=== PATIENT | male | born 1935 | race Caucasian/White ===

== ENCOUNTER 2019-01-05 15:13 | Emergency (ER) | payer MEDICARE ==
[~2019-01-05] VITALS: Ht 177.8 cm; Wt 108.9 kg
[2019-01-05 15:13] VITALS: BP_SYST 132
[~2019-01-05 15:13] MED LIST: ALBMDI INH; ALEN70TA3 PO; ASPI-1155 PO; BECL8.7A5 INH; BUPR75TA20 PO; CHOL200075 PO; DILT240T11 PO; FURO-149 PO; GABA-531 PO; IBUP-1969 PO; LIP10 PO; LORA2TAB PO; METF-510 PO; MIRT15TA7 PO; NITSL SL; NORT10CA PO; ONDA4TAB22 PO; OXYC-133 PO; POTA10TA PO; PRO20 PO; ROPI0.5T PO; ROPI2TAB4 PO; SIMV10TA6 PO
[2019-01-05] MEDS ORDERED: NACL 0.9% 1,000 ML IV ONE (15:30)
[2019-01-05 16:37] LABS: ANION GAP 5 (5-15); CALCIUM 8.3 mg/dL (8.4-11.0); CHLORIDE 107 mmol/L (98-107); GLUCOSE 143 mg/dL (70-99); POTASSIUM 4.1 mmol/L (3.5-5.1); SODIUM SERUM 144 mmol/L (136-145); UREA NITROGEN, BLOOD 16 mg/dL (8-21)
[2019-01-05 16:42] LABS: PROTHROMBIN TIME 10.3 SECS (9.5-12.5)
[2019-01-05 16:43] LABS: ALANINE AMINOTRANSFERASE 20 U/L (12-78); ALBUMIN 3.1 g/dL (3.4-4.8); ASPARTATE AMINOTRANSFERASE 21 U/L (10-37); TOTAL BILIRUBIN 0.3 mg/dL (0.0-1.0)
[2019-01-05 17:02] LABS: HEMATOCRIT 37.9 % (36-54); HEMOGLOBIN 12.3 g/dL (14.0-18.0); MEAN CORPUSCULAR HEMOGLOBIN 30 pg (27-31); MEAN CORPUSCULAR HGB CONC 33 % (32-36); MEAN CORPUSCULAR VOLUME 92 fL (79.0-98.0); RED BLOOD CELL COUNT(AUTO) 4.15 MIL/uL (4.2-6.2); WHITE BLOOD COUNT (AUTO) 9.9 K/uL (4.8-10.8)
[2019-01-05 17:03] LABS: EOSINOPHILS # (AUTO) 0.1 K/uL (0.0-0.4); EOSINOPHILS % (AUTO) 1.1 % (0.0-4.0); LYMPHOCYTES # (AUTO) 2.1 K/uL (1.0-5.5); LYMPHOCYTES % (AUTO) 20.7 % (20.5-51.5); MONOCYTES # (AUTO) 0.7 K/uL (0.0-1.0); MONOCYTES % (AUTO) 7.5 % (1.7-9.3); NEUTROPHILS # (AUTO) 6.9 K/uL (1.8-7.7); NEUTROPHILS % (AUTO) 69.7 % (40.0-70.0); PLATELET COUNT (AUTO) 246 K/uL (130-430); RED CELL DISTRIBUTION WIDTH 15.8 % (9.0-15.0)
[2019-01-05 17:04] LABS: BASOPHILS # (AUTO) 0.1 K/uL (0.0-0.2)
[2019-01-05 20:17] VITALS: BP_SYST 110
== END 2019-01-05 20:14 | disposition short-term general hospital (02) ==
LOC: SED 15:13
DX: J90 Pleural effusion, not elsewhere classified (principal); R09.02 Hypoxemia; F43.10 Post-traumatic stress disorder, unspecified; J44.9 Chronic obstructive pulmonary disease, unspecified; K21.9 Gastro-esophageal reflux disease without esophagitis; I12.9 Hypertensive chronic kidney disease with stage 1 through stage 4 chronic kidney disease, or unspecified chronic kidney disease; E11.22 Type 2 diabetes mellitus with diabetic chronic kidney disease; N18.9 Chronic kidney disease, unspecified; E78.5 Hyperlipidemia, unspecified; Z86.2 Personal history of diseases of the blood and blood-forming organs and certain disorders involving the immune mechanism; Z85.46 Personal history of malignant neoplasm of prostate; Z86.73 Personal history of transient ischemic attack (TIA), and cerebral infarction without residual deficits; Z88.6 Allergy status to analgesic agent; Z88.2 Allergy status to sulfonamides; Z88.8 Allergy status to other drugs, medicaments and biological substances; Z79.82 Long term (current) use of aspirin; Z79.899 Other long term (current) drug therapy
CPT/HCPCS: 36415; 36600; 71045; 80053; 82803; 83605; 83880; 84484; 85025; 85379; 85610; 85730; 87040; 93005; 99285; J7030

== ENCOUNTER 2019-06-22 02:55 | Inpatient (IN) | payer MEDICARE ==
[~2019-06-22] VITALS: Ht 165.1 cm; Wt 77.1 kg
[2019-06-22] VITALS (15 sets, daily range): BP systolic 108–155
--- NOTE | 2019-06-22 03:05 | NUR ---
Patient to ER bed 02 to gown for evaluation. Side rails up. Report given to POLA Hay.
--- NOTE | 2019-06-22 03:06 | NUR ---
ER MD Grant at bedside for medical evaluation.
--- NOTE | 2019-06-22 03:07 | NUR ---
AWAKE, ALERT, BIB PARAMEDICS. PARAMEDICS STATES PT HAD BEEN PURSED LIP BREATHING ENROUTE. PT STATES THAT HE HAD BEEN HAVING SOB X2 HRS, AND IT WOKE HIM UP FROM HIS SLEEP. PT ALSO COMPLAINED OF PAIN IN LEFT SIDE FROM LEFT HIP TO LEFT FOOT.
--- NOTE | 2019-06-22 03:10 | NUR ---
RT bedside to setup Pt on BiPAP at 15/10
[2019-06-22] MEDS ORDERED: ASPIRIN 325 MG TABLET PO ONE (03:15)
[2019-06-22] MEDS ORDERED: AZITHROMYCIN 250 MG TABLET PO ONE (03:15)
[2019-06-22] MEDS ORDERED: VANCOMYCIN HCL 1,000 MG in NS 250 ML IV ONE (03:15)
[2019-06-22] MEDS ORDERED: methylPREDNISolone SOD SUCC/PF 62.5 MG/ML VIAL IVP ONE (03:15)
[2019-06-22] MEDS ORDERED: IPRATROPIUM/ALBUTEROL SULFATE 3 ML AMPUL.NEB (DUONEB) INH ONE (03:15)
--- NOTE | 2019-06-22 03:20 | NUR ---
Portable X Ray bedside, Pt in guarded however VSS condition
[2019-06-22] MEDS ORDERED: ACETAMINOPHEN 500 MG TABLET PO ONE (03:30)
[2019-06-22 03:38] LABS: BASOPHILS # (AUTO) 0.1 K/uL (0.0-0.2); BASOPHILS % (AUTO) 0.7 % (0.0-2.0); EOSINOPHILS # (AUTO) 0.3 K/uL (0.0-0.4); EOSINOPHILS % (AUTO) 3.2 % (0.0-4.0); HEMATOCRIT 37.3 % (36-54); HEMOGLOBIN 12.2 g/dL (14.0-18.0); LYMPHOCYTES # (AUTO) 1.2 K/uL (1.0-5.5); LYMPHOCYTES % (AUTO) 11.4 % (20.5-51.5); MEAN CORPUSCULAR HEMOGLOBIN 30 pg (27-31); MEAN CORPUSCULAR HGB CONC 33 % (32-36); MEAN CORPUSCULAR VOLUME 91 fL (79.0-98.0); MONOCYTES # (AUTO) 0.7 K/uL (0.0-1.0); MONOCYTES % (AUTO) 7.2 % (1.7-9.3); NEUTROPHILS # (AUTO) 7.9 K/uL (1.8-7.7); NEUTROPHILS % (AUTO) 77.5 % (40.0-70.0); PLATELET COUNT (AUTO) 194 K/uL (130-430); RED BLOOD CELL COUNT(AUTO) 4.11 MIL/uL (4.2-6.2); RED CELL DISTRIBUTION WIDTH 17.2 % (9.0-15.0); WHITE BLOOD COUNT (AUTO) 10.2 K/uL (4.8-10.8)
[2019-06-22] MEDS ORDERED: PIPERACILLIN/TAZOBACTAM 3.375 GM/VIAL (ZOSYN) IV ONE (03:40)
[2019-06-22] MEDS ORDERED: VANCOMYCIN HCL 1000 MG/VIAL IV ONE (03:40)
[2019-06-22] MEDS: PIPERACILLIN/TAZO 3.375 GM in NS 50 ML IV ONE ×2 (03:56→03:58)
[2019-06-22 04:07] LABS: ANION GAP 9 (5-15); CALCIUM 8.6 mg/dL (8.4-11.0); CHLORIDE 104 mmol/L (98-107); CREATININE 1.15 mg/dL (0.55-1.30); GLUCOSE 152 mg/dL (70-99); POTASSIUM 3.9 mmol/L (3.5-5.1); SODIUM SERUM 143 mmol/L (136-145); UREA NITROGEN, BLOOD 9 mg/dL (8-21)
[2019-06-22 04:09] LABS: PROTHROMBIN TIME 9.8 SECS (9.5-12.5)
[2019-06-22 04:23] LABS: ALANINE AMINOTRANSFERASE 14 U/L (12-78); ASPARTATE AMINOTRANSFERASE 20 U/L (10-37); TOTAL BILIRUBIN 0.5 mg/dL (0.0-1.0)
[2019-06-22] MEDS ORDERED: CICLESONIDE INH (04:29)
[2019-06-22] MEDS ORDERED: ATRMDI INH (04:29)
[2019-06-22] MEDS ORDERED: ROPI1TAB2 PO (04:29)
[2019-06-22] MEDS ORDERED: BUSP5TAB3 PO ×3 (04:29)
[2019-06-22] MEDS ORDERED: POTA10TA21 PO (04:29)
[2019-06-22] MEDS ORDERED: OXYCODONE/ACETAMINOPHEN 5-325 TABLET PO ONE (04:30)
--- NOTE | 2019-06-22 04:30 | NUR ---
Medication reconciliation completed with information provided by patient. Any prior medication reconciliation on file was reviewed and corrected.
--- NOTE | 2019-06-22 06:00 | NUR ---
ALL BELONGINGS TAKEN HOME BY .
--- NOTE | 2019-06-22 06:26 | NUR ---
Patient will be admitted to care of DR CESAR. Admitted to unit. Will go to room . Belongings list completed. Summary report printed. Report will be given at bedside.
--- NOTE | 2019-06-22 07:10 | NUR ---
RN OPENING NOTE RECEIVED SBAR REPORT FROM ENDORSING ER NURSE AT BEDSIDE. PT A/O X 4, SPEAKS CITIZ[place] OF [place], TOLERATING BPAP SETTINGS. SEE VS FLOW SHEET.
[2019-06-22] MEDS: LevALBUTEROL HCL 1.25 MG/0.5 ML *CONC.* VIAL.NEB (XOPENEX CONC.) INH SCH ×3 (07:40→15:45)
[2019-06-22] MEDS: PIPERACILLIN/TAZO 3.375 GM in NS 50 ML IV SCH ×3 (08:11→18:44)
--- NOTE | 2019-06-22 08:11 | NUR ---
DR. BALL (PULOK) AT BEDSIDE, D/C BIPAP BIPAP DISCONTINUED PER MD, PT PLACED ON 3L O2 THERAPY VIA NASAL CANULA. NO SPO2 NOTED, SPO2 WNL.
--- NOTE | 2019-06-22 08:30 | NUR ---
DR. CESAR AT BEDSIDE, OK TO TRANSFER TO [facility].
[2019-06-22] MEDS ORDERED: OXYCODONE/ACETAMINOPHEN *10*mg/325 mg TABLET PO PRN (08:45)
[2019-06-22] MEDS ORDERED: NITROGLYCERIN 0.4 MG TAB.SUBL SL SCH (08:45)
[2019-06-22] MEDS ORDERED: buPROPion HCL 75 MG TABLET PO SCH (09:00)
[2019-06-22] MEDS ORDERED: CICLESONIDE INH SCH (09:00)
[2019-06-22] MEDS ORDERED: FLUoxetine HCL 20 MG CAPSULE (PROzac) PO SCH (09:00)
[2019-06-22] MEDS ORDERED: CHOLECALCIFEROL (VITAMIN D3) 2,000 UNIT TABLET PO SCH (09:00)
[2019-06-22] MEDS ORDERED: FUROSEMIDE 40 MG TABLET PO SCH (09:00)
[2019-06-22] MEDS ORDERED: ATORVASTATIN 10 MG TABLET PO SCH (09:00)
[2019-06-22] MEDS ORDERED: ASPIRIN 81 MG TAB.CHEW PO SCH (09:00)
[2019-06-22] MEDS ORDERED: methylPREDNISolone SOD SUCC 40 MG/ML VIAL IVP SCH ×2 (09:00→12:00)
[2019-06-22] MEDS ORDERED: ENOXAPARIN SODIUM 40 MG/0.4 ML SYRINGE SUBCUT SCH (09:00)
[2019-06-22] MEDS ORDERED: DILTIAZEM HCL 120 MG CAP.SR.24H PO SCH (09:00)
[2019-06-22] MEDS ORDERED: POTASSIUM CHLORIDE 10 MEQ TAB.PRT.SR PO SCH (09:00)
[2019-06-22] MEDS ORDERED: busPIRone HCL 5 MG TABLET PO SCH ×3 (09:00→21:00)
--- NOTE | 2019-06-22 09:15 | NUR ---
RECEIVED CALL FROM [facility]. PT MAY BE TRANSFERRED TO [facility] IF ADMITTING PHYSICIAN ACCEPTS PT. THEY STATED THEY WILL FOLLOW UP.
[2019-06-22] MEDS: GABAPENTIN 300 MG CAPSULE PO SCH ×2 (10:32→14:14)
[2019-06-22] MEDS ORDERED: VANCOMYCIN HCL 1,250 MG in NS 250 ML IV SCH (14:00)
--- NOTE | 2019-06-22 14:36 | NUR ---
PT SCHEDULED TO XFER TO [facility] AT 1900 PT TO BE TRANSPORTED TO TELEMETRY ROOM [facility]. RECEIVING MD IS DR. BRITTON MCGEE. RECEIVING RN IS BALA. CLINICAL RESEARCHER AND HOUSE SUP NOTIFIED.
--- NOTE | 2019-06-22 19:15 | NUR ---
RECEIVED NURSING REPORT FROM DAY BETTY BRYAN R.N
--- NOTE | 2019-06-22 19:40 | NUR ---
PATIENT IS ALERT,VERBAL, ORIENRED X4, GIVE COMPLETE NURSING REPORT TO AMBULANCE STAFF SHANTE AND DISCHARGE PATIENT TO [facility]
[2019-06-27] MEDS ORDERED: ALENDRONATE SODIUM 70 MG TABLET (FOSAMAX) PO SCH (09:00)
== END 2019-06-22 19:40 | disposition short-term general hospital (02) | DRG 177 ==
LOC: SED 02:55 → SIC 05:49
PROVIDERS: ADMIT Family Medicine; ATTEND Family Medicine
PROC: 5A09357 Assistance with Respiratory Ventilation, Less than 24 Consecutive Hours, Continuous Positive Airway Pressure (ICD-10-PCS; principal; 2019-06-22)
DX: J15.6 Pneumonia due to other Gram-negative bacteria (principal); J96.01 Acute respiratory failure with hypoxia; J44.1 Chronic obstructive pulmonary disease with (acute) exacerbation; J44.0 Chronic obstructive pulmonary disease with (acute) lower respiratory infection; D64.9 Anemia, unspecified; E11.40 Type 2 diabetes mellitus with diabetic neuropathy, unspecified; E78.5 Hyperlipidemia, unspecified; F43.10 Post-traumatic stress disorder, unspecified; G25.81 Restless legs syndrome; I10 Essential (primary) hypertension; I25.10 Atherosclerotic heart disease of native coronary artery without angina pectoris; M54.30 Sciatica, unspecified side; K21.9 Gastro-esophageal reflux disease without esophagitis; N40.0 Benign prostatic hyperplasia without lower urinary tract symptoms; Z96.642 Presence of left artificial hip joint; Z96.653 Presence of artificial knee joint, bilateral; F32.9 Major depressive disorder, single episode, unspecified; Z85.46 Personal history of malignant neoplasm of prostate; Z86.73 Personal history of transient ischemic attack (TIA), and cerebral infarction without residual deficits; Z99.81 Dependence on supplemental oxygen; Z88.2 Allergy status to sulfonamides; Z88.5 Allergy status to narcotic agent; Z88.8 Allergy status to other drugs, medicaments and biological substances; Z79.82 Long term (current) use of aspirin; Z79.899 Other long term (current) drug therapy
CPT/HCPCS: 36415; 36600; 71045; 80053; 82803-TC; 83605; 83880; 84484; 85025; 85610-TC; 85730-TC; 87040-TC; 87081; 93005; 94640; 94660; 96365; 96368; 96375; 99285; J1030; J1650; J2543; J2930; J3370; J7050; J7612; J7620; Q0144

== ENCOUNTER 2020-02-03 15:17 | Emergency (ER) | payer MEDICARE ==
[~2020-02-03] VITALS: Ht 165.1 cm; Wt 80.7 kg
[~2020-02-03 15:17] MED LIST changes: +ATRMDI INH; -BECL8.7A5 INH; +BUSP5TAB3 PO; +CICLESONIDE INH; -IBUP-1969 PO; -LORA2TAB PO; -METF-510 PO; -MIRT15TA7 PO; -NORT10CA PO; -ONDA4TAB22 PO; -POTA10TA PO; +POTA10TA21 PO; -ROPI0.5T PO; +ROPI1TAB2 PO; -ROPI2TAB4 PO; -SIMV10TA6 PO
[2020-02-03] MEDS ORDERED: ONDANSETRON HCL 4 MG/2 ML VIAL IVP ONE (15:45)
[2020-02-03] MEDS ORDERED: KETOROLAC TROMETHAMINE 30 MG VIAL IVP ONE (15:45)
[2020-02-03 15:50] VITALS: BP_SYST 142
--- NOTE | 2020-02-03 15:50 | NUR ---
Patient to ER bed 1 to gown for evaluation. Side rails up.
--- NOTE | 2020-02-03 15:51 | NUR ---
ER at bedside examining patient.
--- NOTE | 2020-02-03 16:05 | NUR ---
Assessed patient in bed. Alert and oriented x 4. C/O right pain 06/10 after a fall yesterday tripping over oxygen line. Patient stated wasn't in pain yesterday but woke up in pain today related to right shoulder and left sciatica. Brought in BLS from home.
[2020-02-03 17:01] LABS: HEMOGLOBIN 11.8 g/dL (14.0-18.0); MEAN CORPUSCULAR HEMOGLOBIN 29 pg (27-31); MEAN CORPUSCULAR HGB CONC 32 % (32-36); MEAN CORPUSCULAR VOLUME 90 fL (79.0-98.0); PLATELET COUNT (AUTO) 220 K/uL (130-430); RED BLOOD CELL COUNT(AUTO) 4.12 MIL/uL (4.2-6.2); RED CELL DISTRIBUTION WIDTH 16.8 % (9.0-15.0)
[2020-02-03 17:03] LABS: ANION GAP 5 (5-15); CALCIUM 8.2 mg/dL (8.4-11.0); CHLORIDE 100 mmol/L (98-107); CREATININE 1.36 mg/dL (0.55-1.30); GLUCOSE 127 mg/dL (70-99); POTASSIUM 4.3 mmol/L (3.5-5.1); SODIUM SERUM 136 mmol/L (136-145); UREA NITROGEN, BLOOD 12 mg/dL (8-21)
[2020-02-03 17:05] LABS: INR 0.9 (0.80-1.20); PROTHROMBIN TIME 9.5 SECS (9.5-12.5)
[2020-02-03 17:09] LABS: ALANINE AMINOTRANSFERASE 31 U/L (12-78); ALBUMIN 3.1 g/dL (3.4-4.8); ASPARTATE AMINOTRANSFERASE 18 U/L (10-37); LIPASE 75 U/L (73-393); TOTAL BILIRUBIN 0.6 mg/dL (0.0-1.0)
[2020-02-03 17:20] LABS: BAND % (MANUAL) 1 % (0-6); BASOPHILS % (MANUAL) 0 % (0-2); EOSINOPHILS % (MANUAL) 0 % (0-7); LYMPHOCYTES % (MANUAL) 14 % (20-46); MONOCYTES % (MANUAL) 10 % (0-11)
[2020-02-03] MEDS ORDERED: fentaNYL CITRATE/PF 100 MCG/2 ML AMP IVP ONE (17:45)
[2020-02-03 18:31] VITALS: BP_SYST 117
--- NOTE | 2020-02-03 18:40 | NUR ---
Patient given written and verbal discharge instructions and verbalizes understanding. ER MD Cooper discussed with patient the results and treatment provided. Patient in stable condition. ID arm band removed. IV catheter removed intact and dressing applied, no active bleeding. Rx of Naprosyn given. Patient educated on pain management and to follow up with PMD. Pain Scale 3/10. Opportunity for questions provided and answered. Medication side effect fact sheet provided. Patient left building at 1831.
== END 2020-02-03 18:40 | disposition home or self-care (01) ==
LOC: SED 15:17
DX: S42.402A Unspecified fracture of lower end of left humerus, initial encounter for closed fracture (principal); J90 Pleural effusion, not elsewhere classified; I10 Essential (primary) hypertension; E11.9 Type 2 diabetes mellitus without complications; K21.9 Gastro-esophageal reflux disease without esophagitis; I25.10 Atherosclerotic heart disease of native coronary artery without angina pectoris; J44.9 Chronic obstructive pulmonary disease, unspecified; Z88.5 Allergy status to narcotic agent; Z88.8 Allergy status to other drugs, medicaments and biological substances; Z79.899 Other long term (current) drug therapy; Z79.82 Long term (current) use of aspirin; W01.0XXA Fall on same level from slipping, tripping and stumbling without subsequent striking against object, initial encounter; Y93.89 Activity, other specified; Y92.89 Other specified places as the place of occurrence of the external cause; Y99.8 Other external cause status
CPT/HCPCS: 29105; 36415; 71045; 73030; 73060; 73090; 73100; 80053; 82550; 83605; 83690; 84484; 85007; 85027; 85610; 85730; 87040; 93005; 96374; 96375; 99285; J1885; J2405; J3010

== ENCOUNTER 2021-11-10 10:40 | Inpatient (IN) | payer MEDICARE, SELFPAY ==
[~2021-11-10] VITALS: Ht 170.2 cm; Wt 81.6 kg
--- NOTE | 2021-11-10 10:40 | NUR ---
Placed in room 6 . Placed on monitor technician, blood pressure machine and pulse oximeter. To gown for exam. Side rails up. Report given to POLA Madrigal.
--- NOTE | 2021-11-10 10:41 | NUR ---
Patient awake, alert and oriented x 3. Patient noted to be very anxious. Placed on sorter upholstery parts; VSS. Patient on non-rebreather mask upon arrival; oxygen decreased to home O2 level (3L). Was recently seen at [facility] c/c-SOB and "muscular" c/p. Denies c/p currently. Medics further reporting pt has "shingles." Isaías LE pitting edema noted. Awaiting MD evaluation.
[2021-11-10 10:44] VITALS: BP_SYST 126
--- NOTE | 2021-11-10 10:44 | NUR ---
Dr Obando to bedside to assess patient
--- NOTE | 2021-11-10 10:50 | NUR ---
RT to bedside per Dr Obando to put patient on Bipap
--- NOTE | 2021-11-10 11:25 | NUR ---
O2 increased per RT from 30% to 50% due to patient's SpO2 decreasing to 90%.
--- NOTE | 2021-11-10 12:45 | NUR ---
# 20 gauge angiocath placed to L AC. Use of asceptic technique. Opsite placed over site. Blood return noted. Blood for lab drawn from site. Flushed with 10 cc of normal saline. No evidence of infiltration noted. Patient tolerated well.
[2021-11-10 13:10] LABS: ANION GAP 7 (5-15); CALCIUM 8.9 mg/dL (8.4-11.0); CHLORIDE 98 mmol/L (98-107); CREATININE 1.44 mg/dL (0.55-1.30); GLUCOSE 145 mg/dL (70-99); POTASSIUM 4.7 mmol/L (3.5-5.1); SODIUM SERUM 137 mmol/L (136-145); UREA NITROGEN, BLOOD 26 mg/dL (8-21)
[2021-11-10 13:15] LABS: BASOPHILS # (AUTO) 0.1 K/uL (0.0-0.2); BASOPHILS % (AUTO) 0.5 % (0.0-2.0); EOSINOPHILS % (AUTO) 0.1 % (0.0-4.0); HEMATOCRIT 32.6 % (36-54); HEMOGLOBIN 10.6 g/dL (14.0-18.0); LYMPHOCYTES # (AUTO) 1.1 K/uL (1.0-5.5); LYMPHOCYTES % (AUTO) 7.7 % (20.5-51.5); MEAN CORPUSCULAR HEMOGLOBIN 28 pg (27-31); MEAN CORPUSCULAR HGB CONC 33 % (32-36); MEAN CORPUSCULAR VOLUME 85 fL (79.0-98.0); MONOCYTES % (AUTO) 13.6 % (1.7-9.3); NEUTROPHILS # (AUTO) 11.3 K/uL (1.8-7.7); NEUTROPHILS % (AUTO) 78.1 % (40.0-70.0); PLATELET COUNT (AUTO) 401 K/uL (130-430); RED BLOOD CELL COUNT(AUTO) 3.85 MIL/uL (4.2-6.2); RED CELL DISTRIBUTION WIDTH 17.4 % (9.0-15.0); WHITE BLOOD COUNT (AUTO) 14.4 K/uL (4.8-10.8)
--- NOTE | 2021-11-10 13:15 | NUR ---
CXR being done at bedside
[2021-11-10 13:18] LABS: ALANINE AMINOTRANSFERASE 25 U/L (12-78); ALBUMIN 2.4 g/dL (3.4-4.8); ASPARTATE AMINOTRANSFERASE 26 U/L (10-37); TOTAL BILIRUBIN 0.3 mg/dL (0.0-1.0)
--- NOTE | 2021-11-10 13:19 | NUR ---
patient swabbed for covid. sample brought to lab at 1330.
[2021-11-10] MEDS ORDERED: POTA-197 PO (13:42)
[2021-11-10] MEDS ORDERED: MIRT-91 PO (13:42)
[2021-11-10] MEDS ORDERED: ROPI2TAB7 PO (13:42)
[2021-11-10] MEDS ORDERED: NEU300 PO (13:42)
[2021-11-10] MEDS ORDERED: FURO-149 PO (13:42)
[2021-11-10] MEDS ORDERED: ALEN10TA25 PO (13:42)
[2021-11-10] MEDS ORDERED: BUPR75TA8 (13:42)
[2021-11-10] MEDS ORDERED: NITR0.4T47 SL (13:42)
[2021-11-10] MEDS ORDERED: ACET325T PO (13:42)
[2021-11-10] MEDS ORDERED: BRI.2% EACH EYE (13:42)
[2021-11-10] MEDS ORDERED: METF-518 PO (13:42)
[2021-11-10] MEDS ORDERED: PERC10 PO (13:42)
[2021-11-10] MEDS ORDERED: NALO4SPR NS (13:42)
[2021-11-10] MEDS ORDERED: DILT120C89 PO (13:42)
[2021-11-10] MEDS ORDERED: DULO20CA PO (13:42)
[2021-11-10] MEDS ORDERED: BUSP5TAB3 PO (13:42)
[2021-11-10] MEDS ORDERED: ASPI-989 PO (13:42)
[2021-11-10] MEDS ORDERED: POTA10TA21 PO (13:42)
[2021-11-10] MEDS ORDERED: LIP20 PO (13:42)
--- NOTE | 2021-11-10 13:43 | NUR ---
Medication reconciliation completed with information provided by patient's Reis list. Any prior medication reconciliation on file was reviewed and corrected.
--- NOTE | 2021-11-10 14:13 | NUR ---
RT paged to titrate O2 down to 40%
[2021-11-10] MEDS ORDERED: DEXAMETHASONE SOD PHOSPHATE 10 MG/ML VIAL IVP ONE (14:15)
[2021-11-10] MEDS ORDERED: FUROSEMIDE 40 MG/4 ML VIAL IVP ONE (14:15)
[2021-11-10] MEDS ORDERED: IPRATROPIUM/ALBUTEROL SULFATE 3 ML AMPUL.NEB (DUONEB) INH ONE (14:15)
--- NOTE | 2021-11-10 14:30 | NUR ---
Patient will be admitted to care of Dr Mott. Admitted to tele unit. Will go to room 123A. Belongings list completed. Complete and up to date summary report printed. SBAR report to be given at bedside with opportunity for questions.
[2021-11-10] MEDS ORDERED: DEXTROSE 50% JECT 50 ML DISP.SYRIN IVP PRN (15:30)
[2021-11-10] MEDS ORDERED: POTASSIUM CHLORIDE 20 MEQ TAB.PRT.SR PO PRN (15:30)
[2021-11-10] MEDS ORDERED: LORazepam 2 MG/ML VIAL IVP PRN (15:30)
[2021-11-10] MEDS ORDERED: ZOLPIDEM TARTRATE 5 MG TABLET PO PRN (15:30)
[2021-11-10] MEDS ORDERED: AZITHROMYCIN 250 MG TABLET PO ONE (15:30)
[2021-11-10] MEDS ORDERED: MAGNESIUM SULFATE 50 ML IV PRN (15:30)
[2021-11-10] MEDS ORDERED: ONDANSETRON HCL 4 MG/2 ML VIAL IVP PRN (15:30)
[2021-11-10] MEDS ORDERED: MUPIROCIN 2% TOPICAL OINTMENT 22 GM NS PRN (15:30)
--- NOTE | 2021-11-10 15:39 | NUR ---
Pt to be transported to room 123A with RN via [facility]
--- NOTE | 2021-11-10 16:15 | NUR ---
ADMISSION NOTE Received patient from ER via gurney. Patient admitted with diagnosis of Acute Respiratory Failure. Patient is on Bipap FIO2 at 40. Patient is awake, alert, oriented X 4. Patient oriented to hospital room, call light, toileting, pain management and safety-teach back done. Patient informed that Jeanette Martinez will be his registered nurse and that their room number is 123A. Personal belongings checked and Belongings List documented. Call light within reach.
[2021-11-10] MEDS: NACL 0.9% 1,000 ML IV SCH (16:55)
[2021-11-10] MEDS: cefTRIAXone 1 GM in D5W 50 ML IV SCH (16:55)
--- NOTE | 2021-11-10 17:03 | NUR ---
CONSULTATION PAGED/CALLED Reason for Consultation: [] CHF Person Who was Notified: [] IDA Consulting Physician: [] DR JUAREZ Technology Program Manager Specialty: [] CARDIO Ordering Physician: [] DR OGDEN
--- NOTE | 2021-11-10 17:04 | NUR ---
CONSULTATION PAGED/CALLED Reason for Consultation: [] COVID Person Who was Notified: [] IDA Consulting Physician: [] DR CALDWELL Basket Filler Specialty: [] ID Ordering Physician: [] DR OGDEN
--- NOTE | 2021-11-10 17:05 | NUR ---
CONSULTATION PAGED/CALLED Reason for Consultation: [] RESP DISTRESS; COVID Person Who was Notified: [] SUMAYA Consulting Physician: [] DR AGUSTIN Construction Administrative Assistant Specialty: [] PULMO Ordering Physician: [] DR OGDEN
[2021-11-10] MEDS: DECADRON 4 MG TABLET PO SCH (17:06)
[2021-11-10] MEDS: INSULIN LISPRO SLIDING SCALE 100 UNITS/ML VIAL (humaLOG) SUBCUT PRN (17:37)
[2021-11-10 18:14] VITALS: BP_SYST 132
--- NOTE | 2021-11-10 19:10 | NUR ---
CLOSING NOTES: PATIENT RESTING IN BED. BREATHING EVEN AND NON LABORED TO BIPAP AT FIO2 40%. FALL, SAFETY AND ASPIRATION MEASURES PROVIDED. CALL LIGHT WITHIN REACH. ENDORSED TO SIZER MACHINE RN.
[2021-11-10] MEDS ORDERED: busPIRone HCL 5 MG TABLET PO SCH (21:00)
--- NOTE | 2021-11-10 22:23 | NUR ---
paged paged doctor prather
--- NOTE | 2021-11-10 23:49 | NUR ---
INFLUENZA SWAB SENT TO LAB.
[2021-11-11] MEDS: GABAPENTIN 300 MG CAPSULE PO SCH ×4 (01:24→20:35)
[2021-11-11] MEDS: busPIRone HCL 5 MG TABLET PO SCH ×2 (01:25→20:36)
[2021-11-11] MEDS: FUROSEMIDE 40 MG TABLET PO SCH ×3 (01:25→21:04)
[2021-11-11] MEDS: BRIMONIDINE TARTRATE 0.2% 5 mL EYE DROPS EACH EYE SCH ×3 (01:26→20:38)
[2021-11-11] MEDS: buPROPion HCL 75 MG TABLET PO SCH ×4 (01:27→20:35)
[2021-11-11] MEDS: MIRTAZAPINE 15 MG TABLET PO SCH ×2 (01:27→20:35)
[2021-11-11] MEDS: ACETAMINOPHEN 325 MG TABLET PO PRN ×3 (04:59→21:58)
--- NOTE | 2021-11-11 05:08 | NUR ---
Nutrition Update Johnathon Scale 14 noted. Pt admitted for Acute Respiratory failure Diet: Cardiac BMI: 28.2 kg/m2 RD to follow per nutrition care standards.
[2021-11-11 07:55] VITALS: BP_SYST 143
--- NOTE | 2021-11-11 08:30 | NUR ---
iv insertion/late entry due to care no iv line on pt. new iv line started by elizabeth Er nurse. on rt upper arm #22 . flushed well .no s/s of infiltration noted. ivf infusing well. pt stable res and unlabored.dyspea on excertion noted. hob elevated. kept comfortable. vital stable conitnue on bipap. fio2 40%.o2 saturation 99%. tolerating well. safety/fall precaution in place.call light within reach.will continue to reach.
[2021-11-11] MEDS ORDERED: ENOXAPARIN SODIUM 40 MG/0.4 ML SYRINGE SUBCUT SCH (09:00)
[2021-11-11] MEDS: ASCORBIC ACID 500 MG TABLET PO SCH (09:39)
[2021-11-11] MEDS: CHOLECALCIFEROL (VITAMIN D3) 2,000 UNIT TABLET PO SCH (09:39)
[2021-11-11] MEDS: AZITHROMYCIN 250 MG TABLET PO SCH (09:40)
[2021-11-11] MEDS: DILTIAZEM HCL 120 MG CAP.SR.24H PO SCH (09:41)
[2021-11-11] MEDS: ENOXAPARIN SODIUM 40 MG/0.4 ML SYRINGE SUBCUT SCH ×2 (09:43→20:37)
[2021-11-11 11:11] LABS: BASOPHILS # (AUTO) 0.1 K/uL (0.0-0.2); BASOPHILS % (AUTO) 0.9 % (0.0-2.0); EOSINOPHILS % (AUTO) 0.2 % (0.0-4.0); HEMATOCRIT 34.4 % (36-54); HEMOGLOBIN 10.9 g/dL (14.0-18.0); LYMPHOCYTES # (AUTO) 0.9 K/uL (1.0-5.5); LYMPHOCYTES % (AUTO) 5.1 % (20.5-51.5); MEAN CORPUSCULAR HEMOGLOBIN 27 pg (27-31); MEAN CORPUSCULAR HGB CONC 32 % (32-36); MEAN CORPUSCULAR VOLUME 86 fL (79.0-98.0); MONOCYTES # (AUTO) 0.7 K/uL (0.0-1.0); MONOCYTES % (AUTO) 4.4 % (1.7-9.3); NEUTROPHILS # (AUTO) 15.1 K/uL (1.8-7.7); PLATELET COUNT (AUTO) 414 K/uL (130-430); RED BLOOD CELL COUNT(AUTO) 4.01 MIL/uL (4.2-6.2); RED CELL DISTRIBUTION WIDTH 17.4 % (9.0-15.0); WHITE BLOOD COUNT (AUTO) 16.9 K/uL (4.8-10.8)
[2021-11-11] MEDS: DULoxetine HCL 20 MG CAPSULE.DR PO SCH (11:29)
[2021-11-11] MEDS: NACL 0.9% 1,000 ML IV SCH (11:30)
[2021-11-11] MEDS: BARICITINIB -Non-Formulary 2 MG TABLET PO SCH (11:30)
[2021-11-11] MEDS: INSULIN LISPRO SLIDING SCALE 100 UNITS/ML VIAL (humaLOG) SUBCUT PRN ×2 (11:45→21:04)
[2021-11-11 11:52] LABS: ALANINE AMINOTRANSFERASE 22 U/L (12-78); ALBUMIN 2.3 g/dL (3.4-4.8); ANION GAP 4 (5-15); ASPARTATE AMINOTRANSFERASE 43 U/L (10-37); C-REACTIVE PROTEIN QUANT 33.9 mg/dL (0-0.5); CALCIUM 8.9 mg/dL (8.4-11.0); CHLORIDE 99 mmol/L (98-107); CREATININE 1.15 mg/dL (0.55-1.30); GLUCOSE 203 mg/dL (70-99); POTASSIUM 3.8 mmol/L (3.5-5.1); SODIUM SERUM 137 mmol/L (136-145); TOTAL BILIRUBIN 0.2 mg/dL (0.0-1.0); UREA NITROGEN, BLOOD 26 mg/dL (8-21)
[2021-11-11 12:00] VITALS: BP_SYST 125
[2021-11-11 12:48] LABS: ERYTHROCYTE SEDIMENTATION RATE 95 MM/HR (0-15)
[2021-11-11 15:33] LABS: NEUTROPHILS % (AUTO) 89.4 % (40.0-70.0)
[2021-11-11] MEDS: cefTRIAXone 1 GM in D5W 50 ML IV SCH (15:52)
[2021-11-11] MEDS: DECADRON 4 MG TABLET PO SCH (15:53)
[2021-11-11 15:57] VITALS: BP_SYST 130
--- NOTE | 2021-11-11 15:58 | NUR ---
PT IS ON O2 NASAL CANULA 2 L. TOLERATING WELL DENIES SOB. AT THIS TIME. O2 SATURATION 99%. NOT IN ACUTE DISTRESS..RT UPEER ARM IV PEEPING. .NEW IV LINE STARTED ON RT HAND #22. WITH GOOD BLOOD RETURN. FLUSHED WELL. NO S/S OF INFILTRATION NOTED. IVF INFUSING WELL.
--- NOTE | 2021-11-11 17:51 | NUR ---
PT RESTING COMFORTABLY. NOT IN ACUTE DISTRESS. CONTINUE ON 2LNC. SATURATION 95% . NEEDS ATTENDED.
[2021-11-11 20:30] VITALS: BP_SYST 138
--- NOTE | 2021-11-11 22:46 | NUR ---
Paged HR 140's paged Dr. Montaño. Pt doing leg exercises c/o restless leg syndrome. Awaiting callback.
--- NOTE | 2021-11-11 23:19 | NUR ---
Rounds/Paged Pt c/o restless leg and states he takes requip at home. Paged and spoke with Dr. Mott and order received for Requip 2mg. Will carry out.
--- NOTE | 2021-11-11 23:50 | NUR ---
HR down from 140's to 100-102 after requip given for restless leg syndrome. Pt on bipap per RT. Will continue to monitor.
[2021-11-12 00:20] VITALS: BP_SYST 127
--- NOTE | 2021-11-12 01:33 | NUR ---
Spoke w/ Paged and spoke with Dr. Montaño re HR 140's. BP 124/91. Order received for Cardizem 60mg PO now. Will carry out.
[2021-11-12] MEDS ORDERED: DILTIAZEM HCL 60 MG TABLET PO ONE (01:45)
[2021-11-12] MEDS: NACL 0.9% 1,000 ML IV SCH (03:40)
--- NOTE | 2021-11-12 06:30 | NUR ---
Closing notes Pt alert, awake, no s/s distress noted. Pt on bipap O2 sat 97%. HR in the 80's. BS checked 168. IVF infusing at ordered rate R. FA 22G clear and patent. Pt denies pain. Urinal emptied. Call light within reach. Bed low, locked, siderails up x3. To endorse to AM nurse.
[2021-11-12] MEDS: INSULIN LISPRO SLIDING SCALE 100 UNITS/ML VIAL (humaLOG) SUBCUT PRN ×3 (06:40→22:00)
--- NOTE | 2021-11-12 08:00 | NUR ---
NOTES PATIENT AAOX 4. LUNGS BILATERALLY DIMINISHED AT THE BASES. ABDOMEN SOFT AND NON DISTENDED. HAS IV ACCESS ON THE RIGHT FOREARM 322. WITH NORMAL SALINE AT 50CC/HR INFUSING ON WELL. ABLE TO EAT BREAKFAST GOOD. COMPLAINED OF RESTLESS LEG. CALL LIGHTS WITHIN REACH. BED LOW POSITION, ALARMED AND LOCKED. WILL CONTINUE
[2021-11-12 08:44] VITALS: BP_SYST 141
--- NOTE | 2021-11-12 09:00 | NUR ---
rt notes 0900 found pt on 3LNC, bipap off. pt saturating 94%. will cont to monitor pt. no wob seen.
[2021-11-12] MEDS: DILTIAZEM HCL 120 MG CAP.SR.24H PO SCH (09:57)
[2021-11-12] MEDS: FUROSEMIDE 40 MG TABLET PO SCH ×2 (09:58→22:03)
[2021-11-12] MEDS: CHOLECALCIFEROL (VITAMIN D3) 2,000 UNIT TABLET PO SCH (09:58)
[2021-11-12] MEDS: ACETAMINOPHEN 325 MG TABLET PO PRN ×3 (09:59→23:35)
[2021-11-12] MEDS: DOCUSATE SODIUM 100 MG CAPSULE PO PRN (09:59)
[2021-11-12] MEDS: buPROPion HCL 75 MG TABLET PO SCH ×3 (09:59→22:03)
[2021-11-12] MEDS: GABAPENTIN 300 MG CAPSULE PO SCH ×3 (09:59→22:03)
[2021-11-12] MEDS: ASCORBIC ACID 500 MG TABLET PO SCH (09:59)
[2021-11-12] MEDS: AZITHROMYCIN 250 MG TABLET PO SCH (10:00)
[2021-11-12] MEDS: BARICITINIB -Non-Formulary 2 MG TABLET PO SCH (10:00)
[2021-11-12] MEDS: DULoxetine HCL 20 MG CAPSULE.DR PO SCH (10:01)
[2021-11-12] MEDS: BRIMONIDINE TARTRATE 0.2% 5 mL EYE DROPS EACH EYE SCH ×2 (10:01→22:06)
[2021-11-12 11:05] LABS: ALANINE AMINOTRANSFERASE 42 U/L (12-78); ALBUMIN 2.2 g/dL (3.4-4.8); ANION GAP 6 (5-15); ASPARTATE AMINOTRANSFERASE 54 U/L (10-37); CHLORIDE 102 mmol/L (98-107); CREATININE 0.94 mg/dL (0.55-1.30); GLUCOSE 218 mg/dL (70-99); POTASSIUM 3.9 mmol/L (3.5-5.1); SODIUM SERUM 143 mmol/L (136-145); TOTAL BILIRUBIN 0.2 mg/dL (0.0-1.0); UREA NITROGEN, BLOOD 27 mg/dL (8-21)
[2021-11-12 11:35] LABS: C-REACTIVE PROTEIN QUANT 18.3 mg/dL (0-0.5)
[2021-11-12 13:50] VITALS: BP_SYST 138
--- NOTE | 2021-11-12 15:00 | NUR ---
ASSISTED TO THE BATHROOM HAD BOWEL MOVEMENT X 2 LARGE SOFT BROWN STOOL.
[2021-11-12] MEDS: cefTRIAXone 1 GM in D5W 50 ML IV SCH (17:21)
[2021-11-12] MEDS: DECADRON 4 MG TABLET PO SCH (17:22)
--- NOTE | 2021-11-12 17:51 | NUR ---
LATEST BS 148 MG/DL. NO COVERAGE GIVEN.
--- NOTE | 2021-11-12 18:04 | NUR ---
Dietitian Recommendations *Cardiac diet w/ Ensure Enlive BID (Provide additional 700 kcal, 40g protein) *Encourage PO intake Please refer to nutrition assessment for details.
[2021-11-12 18:54] VITALS: BP_SYST 128
--- NOTE | 2021-11-12 18:58 | NUR ---
STILL IV ACCESS RT UPPER ARM #22. REMDIZIVIR IV INFUSING ON THE RT UPPER ARM. AND ALSO ON THE RT FOREARM #22. ALL DUE MEDS GIVEN. MADE COMFORTABLE. NO S/S OF DISTRESS NOR PAIN NOTED. VERBALIZED I AM HAPPY AND EATING DINNER AT THE BEDSIDE. URINATES AT THE URINAL. BUT NEEDS TO BE ASSITED TO BE BATHROOM.
[2021-11-12 20:00] VITALS: BP_SYST 145
--- NOTE | 2021-11-12 20:30 | NUR ---
PT AWAKE, ALERT & ORIENTED. SATURATING 95% @ 3L/MIN VIA NC. COMPLAINS OF 3/10 NORIS KNEE PAIN. REPOSITIONED AND ADMINISTERED PAIN MEDS ORDERED. ACCUCHECK , BS = 213, W/ 4UNITS PER SS ADMINISTERED. CONTINENT OF B & B AND USES URINAL, URINE IS CLEAR YELLOW. IVF NS @ 50L/MIN. PIV ON RIGHT WRIST INTACT AND PATENT. ASSISTED W/ ORAL CARE. KEPT CLEAN AND COMFORTABLE. WILL CONT TO MONITOR.
[2021-11-12] MEDS: ENOXAPARIN SODIUM 80 MG/0.8 ML SYRINGE SUBCUT SCH (22:02)
[2021-11-12] MEDS: MIRTAZAPINE 15 MG TABLET PO SCH (22:04)
[2021-11-12] MEDS: busPIRone HCL 5 MG TABLET PO SCH (22:04)
[2021-11-13 00:35] VITALS: BP_SYST 148
[2021-11-13] MEDS: NACL 0.9% 1,000 ML IV SCH ×2 (03:13→23:30)
[2021-11-13] MEDS: INSULIN LISPRO SLIDING SCALE 100 UNITS/ML VIAL (humaLOG) SUBCUT PRN ×4 (06:30→23:02)
[2021-11-13] MEDS: ACETAMINOPHEN 325 MG TABLET PO PRN (06:36)
[2021-11-13 07:39] LABS: BASOPHILS % (AUTO) 0.2 % (0.0-2.0); HEMATOCRIT 31.8 % (36-54); HEMOGLOBIN 10.3 g/dL (14.0-18.0); LYMPHOCYTES # (AUTO) 1.1 K/uL (1.0-5.5); LYMPHOCYTES % (AUTO) 8.7 % (20.5-51.5); MEAN CORPUSCULAR HEMOGLOBIN 28 pg (27-31); MEAN CORPUSCULAR HGB CONC 32 % (32-36); MEAN CORPUSCULAR VOLUME 86 fL (79.0-98.0); MONOCYTES # (AUTO) 0.4 K/uL (0.0-1.0); MONOCYTES % (AUTO) 3.6 % (1.7-9.3); NEUTROPHILS # (AUTO) 10.7 K/uL (1.8-7.7); NEUTROPHILS % (AUTO) 87.5 % (40.0-70.0); PLATELET COUNT (AUTO) 395 K/uL (130-430); RED BLOOD CELL COUNT(AUTO) 3.71 MIL/uL (4.2-6.2); RED CELL DISTRIBUTION WIDTH 16.9 % (9.0-15.0); WHITE BLOOD COUNT (AUTO) 12.2 K/uL (4.8-10.8)
[2021-11-13] MEDS ORDERED: IPRATROPIUM/ALBUTEROL SULFATE 3 ML AMPUL.NEB (DUONEB) INH PRN (07:45)
--- NOTE | 2021-11-13 08:01 | NUR ---
NOTES PATIENT AAOX 3-4. LUNGS BILATERALLY WITH DIMINISHED AT THE BASES. ABDOMEN SOFT AND NON DISTENDED. VITALS SIGNS STABLE. AFEBRILE. HAS IV ACCESS ON THE RIGHT UPPER ARM #22 AND IV ACCESS ON THE RT FOREARM #22 WITH NS AT 50CC/HR INFUSING ON WELL. CALL LIGHTS WITHIN REACH. BED LOW POSITION, ALARMED AND LOCKED. WILL CONTINUE
[2021-11-13 08:13] LABS: ALANINE AMINOTRANSFERASE 47 U/L (12-78); ALBUMIN 2.3 g/dL (3.4-4.8); ANION GAP 7 (5-15); ASPARTATE AMINOTRANSFERASE 50 U/L (10-37); CALCIUM 9.1 mg/dL (8.4-11.0); CHLORIDE 100 mmol/L (98-107); CREATININE 0.92 mg/dL (0.55-1.30); GLUCOSE 172 mg/dL (70-99); POTASSIUM 4.2 mmol/L (3.5-5.1); SODIUM SERUM 141 mmol/L (136-145); TOTAL BILIRUBIN 0.1 mg/dL (0.0-1.0); UREA NITROGEN, BLOOD 25 mg/dL (8-21)
[2021-11-13 08:22] LABS: C-REACTIVE PROTEIN QUANT 13.1 mg/dL (0-0.5)
[2021-11-13] MEDS: BARICITINIB -Non-Formulary 2 MG TABLET PO SCH (08:45)
[2021-11-13] MEDS: DULoxetine HCL 20 MG CAPSULE.DR PO SCH (08:49)
[2021-11-13] MEDS: ASCORBIC ACID 500 MG TABLET PO SCH (08:50)
[2021-11-13] MEDS: GABAPENTIN 300 MG CAPSULE PO SCH ×3 (08:50→20:52)
[2021-11-13] MEDS: buPROPion HCL 75 MG TABLET PO SCH ×3 (08:50→20:52)
[2021-11-13] MEDS: FUROSEMIDE 40 MG TABLET PO SCH ×2 (08:51→20:55)
[2021-11-13] MEDS: DILTIAZEM HCL 120 MG CAP.SR.24H PO SCH (08:51)
[2021-11-13] MEDS: CHOLECALCIFEROL (VITAMIN D3) 2,000 UNIT TABLET PO SCH (08:52)
[2021-11-13] MEDS: ENOXAPARIN SODIUM 80 MG/0.8 ML SYRINGE SUBCUT SCH ×2 (08:54→21:01)
[2021-11-13 08:57] LABS: ERYTHROCYTE SEDIMENTATION RATE 97 MM/HR (0-15)
[2021-11-13] MEDS: BRIMONIDINE TARTRATE 0.2% 5 mL EYE DROPS EACH EYE SCH ×2 (08:57→21:00)
--- NOTE | 2021-11-13 09:00 | NUR ---
DUE MEDS GIVEN.
[2021-11-13] MEDS: AZITHROMYCIN 250 MG TABLET PO SCH (09:18)
[2021-11-13 09:59] VITALS: BP_SYST 147
--- NOTE | 2021-11-13 10:11 | NUR ---
PATIENT REFUSED TO HAVE ANOTHER IV INSERTION, PATIENT HAS TWO IV ACCESS NOTED.
[2021-11-13 14:22] VITALS: BP_SYST 150
--- NOTE | 2021-11-13 14:24 | NUR ---
PATIENT BROUGHT FOR CTA OF CHEST WITH CONTRAST. CONSENT SIGNED BY THE PATIENT. DONTRELL WILL FOUNTAIN ATTENDANT.
--- NOTE | 2021-11-13 14:25 | NUR ---
KAE AND HYGIENE CARE DONE.
[2021-11-13 16:11] VITALS: BP_SYST 136
[2021-11-13] MEDS: cefTRIAXone 1 GM in D5W 50 ML IV SCH (17:36)
[2021-11-13] MEDS: DECADRON 4 MG TABLET PO SCH (17:44)
--- NOTE | 2021-11-13 17:51 | NUR ---
BS 173 MG/DL. COVERAGE GIVEN ORDERED.
[2021-11-13] MEDS: MIRTAZAPINE 15 MG TABLET PO SCH (20:52)
[2021-11-13] MEDS: busPIRone HCL 5 MG TABLET PO SCH (20:56)
[2021-11-13 21:08] VITALS: BP_SYST 146
[2021-11-14 00:57] VITALS: BP_SYST 161
[2021-11-14] MEDS: INSULIN LISPRO SLIDING SCALE 100 UNITS/ML VIAL (humaLOG) SUBCUT PRN ×3 (07:08→22:15)
[2021-11-14 08:00] VITALS: BP_SYST 156
--- NOTE | 2021-11-14 08:00 | NUR ---
Initial notes awake, oriented, eating breakfast, able to feed self. on o2 3L, 2 sat at 94%. denies any pain or discomfort. afebrile, IVF infusing well. uses urinal. call light within reach. Enc to call for help as needed.
[2021-11-14] MEDS: FUROSEMIDE 40 MG TABLET PO SCH ×2 (09:32→20:43)
[2021-11-14] MEDS: DILTIAZEM HCL 120 MG CAP.SR.24H PO SCH (09:33)
[2021-11-14] MEDS: GABAPENTIN 300 MG CAPSULE PO SCH ×3 (09:33→20:39)
[2021-11-14] MEDS: CHOLECALCIFEROL (VITAMIN D3) 2,000 UNIT TABLET PO SCH (09:33)
[2021-11-14] MEDS: AZITHROMYCIN 250 MG TABLET PO SCH (09:33)
[2021-11-14] MEDS: ASCORBIC ACID 500 MG TABLET PO SCH (09:33)
[2021-11-14] MEDS: buPROPion HCL 75 MG TABLET PO SCH ×3 (09:34→20:45)
[2021-11-14] MEDS: BARICITINIB -Non-Formulary 2 MG TABLET PO SCH (09:34)
[2021-11-14] MEDS: BRIMONIDINE TARTRATE 0.2% 5 mL EYE DROPS EACH EYE SCH ×2 (09:35→21:00)
[2021-11-14] MEDS: DULoxetine HCL 20 MG CAPSULE.DR PO SCH (09:35)
[2021-11-14] MEDS: ENOXAPARIN SODIUM 80 MG/0.8 ML SYRINGE SUBCUT SCH ×2 (09:36→20:47)
--- NOTE | 2021-11-14 11:00 | NUR ---
Notes- Up with physical therapy, tolerating so far. Linen changed and partial bath given.
[2021-11-14 12:00] VITALS: BP_SYST 145
--- NOTE | 2021-11-14 14:22 | NUR ---
Discharge Planning: JUMANA spoke to Julia Reis [phone] she requested referral be faxed [phone], YVETTEP also eax to [facility] per Julia coyle
--- NOTE | 2021-11-14 14:45 | NUR ---
notes resting, No distress.
[2021-11-14] MEDS: DECADRON 4 MG TABLET PO SCH (15:23)
[2021-11-14] MEDS: ACETAMINOPHEN 325 MG TABLET PO PRN (15:23)
[2021-11-14] MEDS: NACL 0.9% 1,000 ML IV SCH (15:27)
--- NOTE | 2021-11-14 15:31 | NUR ---
Notes- patient wants his requip now, patient stated that he cannot wait until 1800 pm.
[2021-11-14 16:02] VITALS: BP_SYST 142
[2021-11-14] MEDS: cefTRIAXone 1 GM in D5W 50 ML IV SCH (16:22)
[2021-11-14 19:08] LABS: BASOPHILS % (AUTO) 0.1 % (0.0-2.0); HEMATOCRIT 32.2 % (36-54); HEMOGLOBIN 10.6 g/dL (14.0-18.0); LYMPHOCYTES # (AUTO) 1.6 K/uL (1.0-5.5); LYMPHOCYTES % (AUTO) 10.6 % (20.5-51.5); MEAN CORPUSCULAR HEMOGLOBIN 28 pg (27-31); MEAN CORPUSCULAR HGB CONC 33 % (32-36); MEAN CORPUSCULAR VOLUME 84 fL (79.0-98.0); MONOCYTES # (AUTO) 0.6 K/uL (0.0-1.0); MONOCYTES % (AUTO) 3.9 % (1.7-9.3); NEUTROPHILS # (AUTO) 12.5 K/uL (1.8-7.7); NEUTROPHILS % (AUTO) 85.4 % (40.0-70.0); PLATELET COUNT (AUTO) 439 K/uL (130-430); RED BLOOD CELL COUNT(AUTO) 3.85 MIL/uL (4.2-6.2); RED CELL DISTRIBUTION WIDTH 17.1 % (9.0-15.0); WHITE BLOOD COUNT (AUTO) 14.6 K/uL (4.8-10.8)
[2021-11-14 19:29] LABS: ALANINE AMINOTRANSFERASE 54 U/L (12-78); ALBUMIN 2.2 g/dL (3.4-4.8); ANION GAP 5 (5-15); ASPARTATE AMINOTRANSFERASE 40 U/L (10-37); CALCIUM 9.4 mg/dL (8.4-11.0); CHLORIDE 98 mmol/L (98-107); GLUCOSE 229 mg/dL (70-99); POTASSIUM 4.1 mmol/L (3.5-5.1); SODIUM SERUM 138 mmol/L (136-145); TOTAL BILIRUBIN 0.2 mg/dL (0.0-1.0); UREA NITROGEN, BLOOD 30 mg/dL (8-21)
[2021-11-14 20:02] LABS: ERYTHROCYTE SEDIMENTATION RATE 96 MM/HR (0-15)
[2021-11-14] MEDS: MIRTAZAPINE 15 MG TABLET PO SCH (20:39)
[2021-11-14] MEDS: busPIRone HCL 5 MG TABLET PO SCH (20:44)
[2021-11-14 21:05] LABS: C-REACTIVE PROTEIN QUANT 6.7 mg/dL (0-0.5)
[2021-11-15 02:01] VITALS: BP_SYST 150
[2021-11-15 04:00] VITALS: BP_SYST 150
[2021-11-15 08:00] VITALS: BP_SYST 154
--- NOTE | 2021-11-15 08:00 | NUR ---
INITIAL NOTES AWAKE AND ORIENTED. DENIES ANY PAIN OR DISCOMFORT. HAS OCCASIONAL COUGH. ABLE TO FEED SELF. USES URINAL. NO DISTRESS NOTED. AFEBRILE. WILL MONITOR.
[2021-11-15] MEDS: BARICITINIB -Non-Formulary 2 MG TABLET PO SCH (09:27)
[2021-11-15] MEDS: BRIMONIDINE TARTRATE 0.2% 5 mL EYE DROPS EACH EYE SCH ×2 (09:27→21:00)
[2021-11-15] MEDS: ASCORBIC ACID 500 MG TABLET PO SCH (09:28)
[2021-11-15] MEDS: DULoxetine HCL 20 MG CAPSULE.DR PO SCH (09:28)
[2021-11-15] MEDS: FUROSEMIDE 40 MG TABLET PO SCH ×2 (09:29→22:30)
[2021-11-15] MEDS: CHOLECALCIFEROL (VITAMIN D3) 2,000 UNIT TABLET PO SCH (09:29)
[2021-11-15] MEDS: AZITHROMYCIN 250 MG TABLET PO SCH (09:29)
[2021-11-15] MEDS: buPROPion HCL 75 MG TABLET PO SCH ×3 (09:30→22:31)
[2021-11-15] MEDS: GABAPENTIN 300 MG CAPSULE PO SCH ×3 (09:30→21:00)
[2021-11-15] MEDS: DILTIAZEM HCL 120 MG CAP.SR.24H PO SCH (09:30)
[2021-11-15] MEDS: ENOXAPARIN SODIUM 80 MG/0.8 ML SYRINGE SUBCUT SCH ×2 (09:32→22:35)
[2021-11-15 11:29] VITALS: BP_SYST 151
--- NOTE | 2021-11-15 12:58 | NUR ---
NOTES EATING LUNCH, ALL NEEDS MEET. NO DISTRESS.
[2021-11-15] MEDS: ACETAMINOPHEN 325 MG TABLET PO PRN (14:40)
[2021-11-15] MEDS: DECADRON 4 MG TABLET PO SCH (14:40)
[2021-11-15 15:25] VITALS: BP_SYST 154
[2021-11-15] MEDS: cefTRIAXone 1 GM in D5W 50 ML IV SCH (16:24)
[2021-11-15] MEDS: NACL 0.9% 1,000 ML IV SCH (16:24)
[2021-11-15] MEDS: busPIRone HCL 5 MG TABLET PO SCH (22:30)
[2021-11-15] MEDS: MIRTAZAPINE 15 MG TABLET PO SCH (22:31)
[2021-11-15] MEDS: INSULIN LISPRO SLIDING SCALE 100 UNITS/ML VIAL (humaLOG) SUBCUT PRN (22:35)
[2021-11-16] VITALS (7 sets, daily range): BP systolic 137–146
[2021-11-16] MEDS: ENOXAPARIN SODIUM 80 MG/0.8 ML SYRINGE SUBCUT SCH ×2 (09:00→22:30)
[2021-11-16] MEDS: BRIMONIDINE TARTRATE 0.2% 5 mL EYE DROPS EACH EYE SCH ×2 (09:55→21:00)
[2021-11-16] MEDS: buPROPion HCL 75 MG TABLET PO SCH ×3 (09:56→22:28)
[2021-11-16] MEDS: ASCORBIC ACID 500 MG TABLET PO SCH (09:56)
[2021-11-16] MEDS: CHOLECALCIFEROL (VITAMIN D3) 2,000 UNIT TABLET PO SCH (09:56)
[2021-11-16] MEDS: DULoxetine HCL 20 MG CAPSULE.DR PO SCH (09:56)
[2021-11-16] MEDS: GABAPENTIN 300 MG CAPSULE PO SCH ×3 (09:56→22:25)
[2021-11-16] MEDS: FUROSEMIDE 40 MG TABLET PO SCH ×2 (09:57→22:27)
[2021-11-16] MEDS: DILTIAZEM HCL 120 MG CAP.SR.24H PO SCH (09:57)
[2021-11-16] MEDS: BARICITINIB -Non-Formulary 2 MG TABLET PO SCH (09:57)
[2021-11-16] MEDS: NACL 0.9% 1,000 ML IV SCH (11:30)
[2021-11-16] MEDS: DECADRON 4 MG TABLET PO SCH (14:51)
[2021-11-16] MEDS: ACETAMINOPHEN 325 MG TABLET PO PRN (14:53)
[2021-11-16 15:28] LABS: BASOPHILS % (AUTO) 0.2 % (0.0-2.0); EOSINOPHILS # (AUTO) 0.3 K/uL (0.0-0.4); EOSINOPHILS % (AUTO) 1.5 % (0.0-4.0); HEMATOCRIT 33.3 % (36-54); HEMOGLOBIN 10.8 g/dL (14.0-18.0); LYMPHOCYTES % (AUTO) 15.1 % (20.5-51.5); MEAN CORPUSCULAR HEMOGLOBIN 28 pg (27-31); MEAN CORPUSCULAR HGB CONC 33 % (32-36); MEAN CORPUSCULAR VOLUME 85 fL (79.0-98.0); MONOCYTES # (AUTO) 1.4 K/uL (0.0-1.0); MONOCYTES % (AUTO) 7.1 % (1.7-9.3); NEUTROPHILS % (AUTO) 76.1 % (40.0-70.0); PLATELET COUNT (AUTO) 528 K/uL (130-430); RED BLOOD CELL COUNT(AUTO) 3.93 MIL/uL (4.2-6.2); WHITE BLOOD COUNT (AUTO) 19.7 K/uL (4.8-10.8)
[2021-11-16] MEDS: cefTRIAXone 1 GM in D5W 50 ML IV SCH (16:00)
[2021-11-16 17:08] LABS: CHLORIDE 99 mmol/L (98-107); POTASSIUM 4.5 mmol/L (3.5-5.1); SODIUM SERUM 134 mmol/L (136-145)
[2021-11-16 17:09] LABS: ALANINE AMINOTRANSFERASE 42 U/L (12-78); ALBUMIN 2.2 g/dL (3.4-4.8); ANION GAP 4 (5-15); ASPARTATE AMINOTRANSFERASE 24 U/L (10-37); CREATININE 1.12 mg/dL (0.55-1.30); GLUCOSE 174 mg/dL (70-99); TOTAL BILIRUBIN 0.2 mg/dL (0.0-1.0); UREA NITROGEN, BLOOD 28 mg/dL (8-21)
[2021-11-16] MEDS: OXYCODONE/ACETAMINOPHEN 5-325 TABLET PO SCH (22:24)
[2021-11-16] MEDS: busPIRone HCL 5 MG TABLET PO SCH (22:27)
[2021-11-16] MEDS: MIRTAZAPINE 15 MG TABLET PO SCH (22:27)
[2021-11-16] MEDS: INSULIN LISPRO SLIDING SCALE 100 UNITS/ML VIAL (humaLOG) SUBCUT PRN (22:40)
[2021-11-17 00:09] VITALS: BP_SYST 139
[2021-11-17] MEDS: OXYCODONE/ACETAMINOPHEN 5-325 TABLET PO SCH ×2 (04:00→17:00)
--- NOTE | 2021-11-17 06:16 | NUR ---
SLEPT WELL THROUGHOUT SHIFT. VSS. O2SAT 95%-96% ON 3LPM N/C. PERCOCET GIVEN X1 FOR RA PAIN WITH SOME RELIEF. VOIDS VIA URINAL. NEW IV CATH#22 INSERTED ON RFA IV SITE WITH GOOD BLD RETURNED AND FLUSHED WELL.
[2021-11-17] MEDS: NACL 0.9% 1,000 ML IV SCH (07:30)
[2021-11-17] MEDS: BRIMONIDINE TARTRATE 0.2% 5 mL EYE DROPS EACH EYE SCH ×2 (09:43→21:00)
[2021-11-17] MEDS: ASCORBIC ACID 500 MG TABLET PO SCH (09:53)
[2021-11-17] MEDS: FUROSEMIDE 40 MG TABLET PO SCH ×2 (09:53→21:00)
[2021-11-17] MEDS: CHOLECALCIFEROL (VITAMIN D3) 2,000 UNIT TABLET PO SCH (09:53)
[2021-11-17] MEDS: buPROPion HCL 75 MG TABLET PO SCH ×3 (09:53→21:00)
[2021-11-17] MEDS: ENOXAPARIN SODIUM 80 MG/0.8 ML SYRINGE SUBCUT SCH ×2 (09:53→21:00)
[2021-11-17] MEDS: BARICITINIB -Non-Formulary 2 MG TABLET PO SCH (09:53)
[2021-11-17] MEDS: DILTIAZEM HCL 120 MG CAP.SR.24H PO SCH (09:53)
[2021-11-17] MEDS: GABAPENTIN 300 MG CAPSULE PO SCH ×3 (09:53→21:00)
[2021-11-17] MEDS: DULoxetine HCL 20 MG CAPSULE.DR PO SCH (10:03)
[2021-11-17 10:08] LABS: BASOPHILS # (AUTO) 0.2 K/uL (0.0-0.2); BASOPHILS % (AUTO) 0.9 % (0.0-2.0); EOSINOPHILS # (AUTO) 0.1 K/uL (0.0-0.4); EOSINOPHILS % (AUTO) 0.3 % (0.0-4.0); HEMATOCRIT 34.5 % (36-54); HEMOGLOBIN 10.9 g/dL (14.0-18.0); LYMPHOCYTES # (AUTO) 1.9 K/uL (1.0-5.5); LYMPHOCYTES % (AUTO) 9.8 % (20.5-51.5); MEAN CORPUSCULAR HEMOGLOBIN 27 pg (27-31); MEAN CORPUSCULAR HGB CONC 32 % (32-36); MEAN CORPUSCULAR VOLUME 85 fL (79.0-98.0); MONOCYTES # (AUTO) 0.8 K/uL (0.0-1.0); MONOCYTES % (AUTO) 4.4 % (1.7-9.3); NEUTROPHILS # (AUTO) 16.4 K/uL (1.8-7.7); NEUTROPHILS % (AUTO) 84.6 % (40.0-70.0); PLATELET COUNT (AUTO) 592 K/uL (130-430); RED BLOOD CELL COUNT(AUTO) 4.05 MIL/uL (4.2-6.2); RED CELL DISTRIBUTION WIDTH 17.3 % (9.0-15.0); WHITE BLOOD COUNT (AUTO) 19.3 K/uL (4.8-10.8)
[2021-11-17 10:17] LABS: ANION GAP 4 (5-15); CALCIUM 9.4 mg/dL (8.4-11.0); CHLORIDE 100 mmol/L (98-107); CREATININE 1.08 mg/dL (0.55-1.30); GLUCOSE 224 mg/dL (70-99); PHOSPHORUS 3.2 mg/dL (2.7-4.5); POTASSIUM 4.5 mmol/L (3.5-5.1); SODIUM SERUM 139 mmol/L (136-145); UREA NITROGEN, BLOOD 29 mg/dL (8-21)
[2021-11-17 10:45] LABS: C-REACTIVE PROTEIN QUANT 2.8 mg/dL (0-0.5)
[2021-11-17 11:10] LABS: ERYTHROCYTE SEDIMENTATION RATE 89 MM/HR (0-15)
--- NOTE | 2021-11-17 11:19 | NUR ---
Discharge Planning: [facility] faxed pt referral to [place] [phone] and to Julia [phone]. Addendum: 11/17/21 at 1208 by Margarito Santoro RN Chato: I spoke with Lucy WYPradip dept # [phone] requesting snf arrangement with [facility]. The order was sent to Julia on Wednesday. Per Lucy said , their is no documentation on her record. CM resent the order to her today. Said, the assigned EDDIE/Kelley will call back with the update.
[2021-11-17 11:27] VITALS: BP_SYST 147
[2021-11-17] MEDS: DECADRON 4 MG TABLET PO SCH (14:21)
[2021-11-17 15:28] VITALS: BP_SYST 131
[2021-11-17 16:00] VITALS: BP_SYST 135
[2021-11-17] MEDS: busPIRone HCL 5 MG TABLET PO SCH (21:00)
[2021-11-17] MEDS: MIRTAZAPINE 15 MG TABLET PO SCH (21:00)
[2021-11-17] MEDS: DOXYCYCLINE HYCLATE 100 MG CAPSULE PO SCH (21:00)
[2021-11-18] VITALS (7 sets, daily range): BP systolic 108–133
[2021-11-18] MEDS: INSULIN LISPRO SLIDING SCALE 100 UNITS/ML VIAL (humaLOG) SUBCUT PRN ×2 (00:39→21:01)
[2021-11-18] MEDS: OXYCODONE/ACETAMINOPHEN 5-325 TABLET PO SCH ×4 (01:00→20:00)
[2021-11-18] MEDS: NACL 0.9% 1,000 ML IV SCH (03:30)
--- NOTE | 2021-11-18 07:56 | NUR ---
PHYSICAL THERAPY CO-SIGN The Physical Therapy Progress Notes documented by Plate Finisher have been reviewed. Reviewed/Co-Signed by: Denys Whalen Documentation Done by: LENI HUA PTA Addendum: 11/18/21 at 0756 by Denys Whalen PT Amended: Links added.
[2021-11-18] MEDS: ASCORBIC ACID 500 MG TABLET PO SCH (09:00)
[2021-11-18] MEDS: DULoxetine HCL 20 MG CAPSULE.DR PO SCH (09:00)
[2021-11-18] MEDS: FUROSEMIDE 40 MG TABLET PO SCH ×2 (09:29→21:02)
[2021-11-18] MEDS: DOXYCYCLINE HYCLATE 100 MG CAPSULE PO SCH ×2 (09:30→21:02)
[2021-11-18] MEDS: ENOXAPARIN SODIUM 80 MG/0.8 ML SYRINGE SUBCUT SCH ×2 (09:32→21:08)
[2021-11-18] MEDS: DOCUSATE SODIUM 100 MG CAPSULE PO PRN (09:33)
[2021-11-18] MEDS: GABAPENTIN 300 MG CAPSULE PO SCH ×3 (09:33→21:02)
[2021-11-18] MEDS: DILTIAZEM HCL 120 MG CAP.SR.24H PO SCH (09:34)
[2021-11-18] MEDS: CHOLECALCIFEROL (VITAMIN D3) 2,000 UNIT TABLET PO SCH (09:34)
[2021-11-18] MEDS: BRIMONIDINE TARTRATE 0.2% 5 mL EYE DROPS EACH EYE SCH ×2 (09:34→21:10)
[2021-11-18] MEDS: buPROPion HCL 75 MG TABLET PO SCH ×3 (09:35→21:03)
[2021-11-18] MEDS: DECADRON 4 MG TABLET PO SCH (15:30)
--- NOTE | 2021-11-18 16:00 | NUR ---
CM: CALLED [facility] NOLASCO [facility], SPOKE WITH YOSELIN IN ADMISSIONS, STATED ALL OF THE AVAILABLE [facility] BEDS HAVE BEEN ASSIGNED FOR TODAY, ASKED THAT I CALL BACK TOMORROW MORNING FOR AVAILABILITY
--- NOTE | 2021-11-18 19:45 | NUR ---
OPENING NOTE late entry d/t patient care Received patient awake, resting in bed, no distress on 2L NC. IV to RFA is presently SL. Meal tray at bedside, did not eat much, reports did not have appetite. Bed is locked in lowest position, side rails up and call light w/in reach.
--- NOTE | 2021-11-18 19:45 | NUR ---
closing note late entry d/t patient care Patient resting in comfortable position. No distress, nonlabored breathing and remains on 2L nc. Needs met throughout shift, will endorse care.
[2021-11-18] MEDS: MIRTAZAPINE 15 MG TABLET PO SCH (21:02)
[2021-11-18] MEDS: busPIRone HCL 5 MG TABLET PO SCH (21:10)
[2021-11-19] MEDS: NACL 0.9% 1,000 ML IV SCH ×2 (00:16→22:31)
[2021-11-19] MEDS: OXYCODONE/ACETAMINOPHEN 5-325 TABLET PO SCH ×3 (00:17→17:36)
[2021-11-19 00:43] VITALS: BP_SYST 114
--- NOTE | 2021-11-19 05:30 | NUR ---
IV start IV on RFA occluded/no longer patent. It was removed tip intact and no active bleeding. New IV #24 G was started on right hand. Blood return noted and flushed well. Resumed IVF, patient tolerated.
[2021-11-19] MEDS: INSULIN LISPRO SLIDING SCALE 100 UNITS/ML VIAL (humaLOG) SUBCUT PRN ×4 (06:16→22:38)
--- NOTE | 2021-11-19 06:50 | NUR ---
closing note late entry d/t patient care Patient resting in comfortable position. No distress and remains on Oxymizer-now at 10L. Needs met throughout shift, will endorse care. Addendum: 11/19/21 at 0755 by Joselyn Locke RN THIS IS INCORRECT TIME; IT IS CLOSING NOTE FOR AM
--- NOTE | 2021-11-19 07:53 | NUR ---
OPENING NOTE PT resting in bed, AxO x4. Oxygen 98% on 2L NC, PT complains of generalized weakness. IV on R hand is clean, dry, intact and running prescribed fluids. PT has a wet, productive cough. All needs met at this time, safety checks made and call light left within reach.
[2021-11-19 08:00] VITALS: BP_SYST 129
[2021-11-19] MEDS ORDERED: DOXY100T2 PO (08:38)
[2021-11-19] MEDS ORDERED: APIX2.5T PO (08:38)
--- NOTE | 2021-11-19 09:00 | NUR ---
pt taken off o2 at this time, o2 sat was 97% on 2l per nc
--- NOTE | 2021-11-19 09:17 | NUR ---
pt's o2 sat on room air is 91-92%. informed pt that md is discharging him today, pt stated that he cant walk yet and nobody is at home to help him.
--- NOTE | 2021-11-19 09:21 | NUR ---
pt on 91% on room air.
--- NOTE | 2021-11-19 09:24 | NUR ---
per P.Benito Suero said pt and pt's informed him that this pt is on continuous o2 at home and the takes care of him at home.
[2021-11-19] MEDS: DOXYCYCLINE HYCLATE 100 MG CAPSULE PO SCH ×2 (09:27→22:27)
[2021-11-19] MEDS: GABAPENTIN 300 MG CAPSULE PO SCH ×3 (09:27→22:27)
[2021-11-19] MEDS: ASCORBIC ACID 500 MG TABLET PO SCH (09:27)
[2021-11-19] MEDS: DILTIAZEM HCL 120 MG CAP.SR.24H PO SCH (09:27)
[2021-11-19] MEDS: CHOLECALCIFEROL (VITAMIN D3) 2,000 UNIT TABLET PO SCH (09:29)
[2021-11-19] MEDS: FUROSEMIDE 40 MG TABLET PO SCH ×2 (09:29→22:27)
[2021-11-19] MEDS: buPROPion HCL 75 MG TABLET PO SCH ×3 (09:29→22:26)
[2021-11-19] MEDS: DULoxetine HCL 20 MG CAPSULE.DR PO SCH (09:30)
[2021-11-19] MEDS: ENOXAPARIN SODIUM 80 MG/0.8 ML SYRINGE SUBCUT SCH ×2 (09:40→22:28)
--- NOTE | 2021-11-19 09:45 | NUR ---
UP WITH PT PT up and out of bed, able to ambulate across the room with walker. Oxygen saturation on room air dropped to 79% with activity. When sitting in chair, PTs oxygen saturation returned to 92% on room air. PT complained of shortness of breath and began coughing.
[2021-11-19] MEDS: BRIMONIDINE TARTRATE 0.2% 5 mL EYE DROPS EACH EYE SCH ×2 (10:05→22:35)
--- NOTE | 2021-11-19 10:30 | NUR ---
OXYGEN REPLACED PT complained of shortness of breath and discomfort, oxygen saturation fluctuating between 89-93% on room air. Replaced nasal cannula on 2L, oxygenation returned to 97%.
--- NOTE | 2021-11-19 11:54 | NUR ---
DR OGDEN MADE AWARE THAT PT DOES NOT WANT TO GO HOME BECAUSE NOBODY IS THERE TO TAKE CARE OF HIM BECAUSE HIS WHO USE TO TAKE CARE OF HIM AT HOME IS ALSO HOSPITALIZED AT THIS TIME. SAID TO INFORM ADMINISTRATIVE MANAGER AND LET THEM CONTINUE CHECKING FOR SNF.
[2021-11-19 12:00] VITALS: BP_SYST 113
[2021-11-19] MEDS: DECADRON 4 MG TABLET PO SCH (15:12)
[2021-11-19] MEDS: ACETAMINOPHEN 325 MG TABLET PO PRN (15:13)
[2021-11-19 16:02] VITALS: BP_SYST 117
--- NOTE | 2021-11-19 16:45 | NUR ---
Nutrition F/U: RD reviewed pt's current EMR record including diet Hx, physician notes, nursing notes, pertinent labs/meds/procedures, care trends, and care activity. Admitting Diagnosis Acute Respiratory failure Medical History Comment: PMH: Significant for osteoporosis, chronic pain, COPD, he is oxygen dependent, dyslipidemia, anxiety, depression, neuropathic pain, diabetes, chest pain, Parkinson's disease and cardiac arrhythmia. SARS-CoV-2 Ag (Rapid) Positive 11/10 Pt is also admitted w/ COVID 19 pneumonia, sepsis, vasomotor nephropathy, HTN, acute hypoxemic respiratory failure. Subjective Information Per EMR reviewed, pt is now stable and able to be transferred back to SNF. ONS was added to diet order to help meet needs. BM x 1 yesterday. Po intake is varying, average of 50% most meals and 75% most meals. Abdomen is soft, and distended. Skin risk score of 16 noted. +1 pitting edema, skin w/ abrasion on anterior back, ecchymosis on bilateral arms. Current nutrition intervention is appropriated for overall condition. Current Diet Order/Nutrition Support Cardiac diet with Ensure Enlive BID x 6 days Pertinent Medications lovenox, remedesivir/NaCL IV, vit. D & C, zinc sulfate, Remeron, Lasix, neurotin, NaCL IV. Pertinent Labs: (11/17) WBC: 19.3H, POC GLU: 180H Height: 57 Weight: 180 lbs/ 81.6 kg BMI: 28.19 kg/m2 [place]/Adjusted Body Weight IBWL 148lbs +/- 10% Adj BW: 156lbs/71kg Weight Status: Overweight Estimated Energy Expenditure (kcals/day) 2130 2489 kcal (30-35kcal/kg Adj BW for ronaldo maintenance) Estimated Protein Required (g/day) 71 85g (1.0-1.2g/kg Adj BW for ronaldo maintenance) Estimated Fluid Required (l/day) 1779- 2130 ml (25-30ml/kg adj BW for ronaldo maintenance) or per MD Problem/Etiology/Signs/Symptoms Increased nutritional needs R/T metabolic demands AEB estimated nutritional requirements for COPD. (*on going) Expected Outcomes/Goals - Monitor tolerance and intake w/ goal of pt meeting 75% of estimated nutritional needs, labs trending WNL, normal GI function, and skin integrity/wt maintenance Dietitian Recommendations *Cardiac diet w/ Ensure Enlive BID (Provide additional 700 kcal, 40g protein) *Encourage PO intake Follow Up Moderate Risk: F/U in 3-5 days
--- NOTE | 2021-11-19 16:46 | NUR ---
Dietitian Recommendations *Cardiac diet w/ Ensure Enlive BID (Provide additional 700 kcal, 40g protein) *Encourage PO intake Please refer to nutrition assessment for details.
--- NOTE | 2021-11-19 18:57 | NUR ---
CLOSING NOTE PT resting in bed, AxO x4. No complaints of pain or shortness of breath at this time. IV site is clean, dry, intact, and running prescribed fluids. Oxygen on 2L via nasal cannula. PT up to date on his plan of care. All needs met at this time, safety checks made and call light left within reach.
[2021-11-19 19:00] VITALS: BP_SYST 113
[2021-11-19 20:00] VITALS: BP_SYST 113
[2021-11-19] MEDS: MIRTAZAPINE 15 MG TABLET PO SCH (22:26)
[2021-11-19] MEDS: busPIRone HCL 5 MG TABLET PO SCH (22:26)
[2021-11-20] VITALS: BP_SYST 115
[2021-11-20] MEDS: OXYCODONE/ACETAMINOPHEN 5-325 TABLET PO SCH ×2 (01:53→09:30)
[2021-11-20 07:46] LABS: BASOPHILS # (AUTO) 0.1 K/uL (0.0-0.2); BASOPHILS % (AUTO) 0.7 % (0.0-2.0); HEMATOCRIT 35.6 % (36-54); HEMOGLOBIN 11.4 g/dL (14.0-18.0); LYMPHOCYTES # (AUTO) 1.7 K/uL (1.0-5.5); LYMPHOCYTES % (AUTO) 9.3 % (20.5-51.5); MEAN CORPUSCULAR HEMOGLOBIN 27 pg (27-31); MEAN CORPUSCULAR HGB CONC 32 % (32-36); MEAN CORPUSCULAR VOLUME 85 fL (79.0-98.0); MONOCYTES # (AUTO) 0.7 K/uL (0.0-1.0); MONOCYTES % (AUTO) 3.7 % (1.7-9.3); NEUTROPHILS # (AUTO) 15.8 K/uL (1.8-7.7); NEUTROPHILS % (AUTO) 86.3 % (40.0-70.0); PLATELET COUNT (AUTO) 610 K/uL (130-430); RED CELL DISTRIBUTION WIDTH 17.6 % (9.0-15.0); WHITE BLOOD COUNT (AUTO) 18.3 K/uL (4.8-10.8)
--- NOTE | 2021-11-20 08:00 | NUR ---
NOTES PATIENT AAOX 4. HAS OXYGEN OF 2 LITER PER NASAL CANNULA. LUNGS BILATERALLY DIMINISHED AT THE BASES. ABDOMEN SOFT AND NON DISTENDED. HAS IV ACCESS ON THE RT WRIST #24. IV INFILTRATED. VITALS SIGNS STABLE. AFEBRILE CALL LIGHTS WITHIN REACH. BED IN LOW POSITION, ALARMED AND LOCKED.
[2021-11-20] MEDS: DOXYCYCLINE HYCLATE 100 MG CAPSULE PO SCH (08:12)
[2021-11-20] MEDS: ASCORBIC ACID 500 MG TABLET PO SCH (08:12)
[2021-11-20] MEDS: DILTIAZEM HCL 120 MG CAP.SR.24H PO SCH (08:13)
[2021-11-20] MEDS: GABAPENTIN 300 MG CAPSULE PO SCH (08:13)
[2021-11-20] MEDS: FUROSEMIDE 40 MG TABLET PO SCH (08:14)
[2021-11-20] MEDS: ENOXAPARIN SODIUM 80 MG/0.8 ML SYRINGE SUBCUT SCH (08:27)
[2021-11-20 08:36] LABS: ALANINE AMINOTRANSFERASE 45 U/L (12-78); ALBUMIN 2.3 g/dL (3.4-4.8); ANION GAP 8 (5-15); ASPARTATE AMINOTRANSFERASE 20 U/L (10-37); CALCIUM 9.3 mg/dL (8.4-11.0); CHLORIDE 99 mmol/L (98-107); CREATININE 1.06 mg/dL (0.55-1.30); GLUCOSE 162 mg/dL (70-99); POTASSIUM 4.3 mmol/L (3.5-5.1); SODIUM SERUM 140 mmol/L (136-145); TOTAL BILIRUBIN 0.2 mg/dL (0.0-1.0); UREA NITROGEN, BLOOD 33 mg/dL (8-21)
[2021-11-20] MEDS: CHOLECALCIFEROL (VITAMIN D3) 2,000 UNIT TABLET PO SCH (09:31)
[2021-11-20] MEDS: DULoxetine HCL 20 MG CAPSULE.DR PO SCH (09:31)
[2021-11-20] MEDS: buPROPion HCL 75 MG TABLET PO SCH (09:31)
[2021-11-20] MEDS: BRIMONIDINE TARTRATE 0.2% 5 mL EYE DROPS EACH EYE SCH (09:33)
[2021-11-20 09:52] VITALS: BP_SYST 124
[2021-11-20] MEDS: INSULIN LISPRO SLIDING SCALE 100 UNITS/ML VIAL (humaLOG) SUBCUT PRN (11:52)
[2021-11-20 12:00] VITALS: BP_SYST 120
[2021-11-20 12:43] VITALS: BP_SYST 126
--- NOTE | 2021-11-20 13:22 | NUR ---
PATIENT LEFT IN STABLE CONDITION. WITH OXYGEN ON 2LITERS PER NASAL CANNULA. HUMAN RESOURCES REPRESENTATIVE BY [facility]. DISCHARGE INSTRUCTION GIVEN TO EMT GUYS. INSTRUCTION GIVEN TO THE PATIENT, WILL GO HOME AND CONTINUE PREVIOUS MEDICATION ORDERED. AND WILL SEE THE PCP IN ONE TO TWO WEEKS.
[2021-11-20 16:00] VITALS: BP_SYST 124
== END 2021-11-20 13:22 | disposition home health service (06) | DRG 871 ==
LOC: SED 10:40 → STU 14:26 → SMU 11-20 10:16
PROVIDERS: ADMIT General Practice; ATTEND General Practice
PROC: 5A09457 Assistance with Respiratory Ventilation, 24-96 Consecutive Hours, Continuous Positive Airway Pressure (ICD-10-PCS; principal; 2021-11-10)
PROC: XW033E5 Introduction of Remdesivir Anti-infective into Peripheral Vein, Percutaneous Approach, New Technology Group 5 (ICD-10-PCS; 2021-11-11)
PROC: XW0DXM6 Introduction of Baricitinib into Mouth and Pharynx, External Approach, New Technology Group 6 (ICD-10-PCS; 2021-11-17)
DX: A41.89 Other specified sepsis (principal); U07.1 COVID-19; N17.0 Acute kidney failure with tubular necrosis; J12.82 Pneumonia due to coronavirus disease 2019; J96.01 Acute respiratory failure with hypoxia; J44.0 Chronic obstructive pulmonary disease with (acute) lower respiratory infection; I25.10 Atherosclerotic heart disease of native coronary artery without angina pectoris; Z96.653 Presence of artificial knee joint, bilateral; Z96.649 Presence of unspecified artificial hip joint; R53.81 Other malaise; Z66 Do not resuscitate; F32.A Depression, unspecified; F41.9 Anxiety disorder, unspecified; M81.0 Age-related osteoporosis without current pathological fracture; I11.0 Hypertensive heart disease with heart failure; I50.9 Heart failure, unspecified; E78.5 Hyperlipidemia, unspecified; E11.9 Type 2 diabetes mellitus without complications; B02.9 Zoster without complications; G20 Parkinson's disease; Z88.5 Allergy status to narcotic agent; Z88.8 Allergy status to other drugs, medicaments and biological substances; Z79.899 Other long term (current) drug therapy; Z85.46 Personal history of malignant neoplasm of prostate; Z99.81 Dependence on supplemental oxygen; Z85.51 Personal history of malignant neoplasm of bladder
CPT/HCPCS: 36415; 36600; 71045; 71275; 80048; 80053; 82728; 82962; 83735; 83880; 84100; 84484; 85025; 85379; 85651-TC; 86140; 93005; 93306; 94660; 94760; 96374; 96375; 97110-GP; 97116-GP; 97163-GP; 97530-GP; 99285; G0378; J0696; J1100; J1650; J1940; J2060; J2405; J7050; J7060; J8540; Q0144; Q9967

== ENCOUNTER 2021-12-04 16:22 | Emergency (ER) | payer MEDICARE, SELFPAY ==
[~2021-12-04] VITALS: Ht 177.8 cm; Wt 108.9 kg
[2021-12-04 16:22] VITALS: BP_SYST 125
[~2021-12-04 16:22] MED LIST changes: +ACET325T PO; +ALEN10TA25 PO; -ALEN70TA3 PO; +APIX2.5T PO; +ASPI-989 PO; +BRI.2% EACH EYE; +BUPR75TA8; +DILT120C89 PO; +DOXY100T2 PO; +DULO20CA PO; +LIP20 PO; +METF-518 PO; +MIRT-91 PO; +NALO4SPR NS; +NEU300 PO; +NITR0.4T47 SL; +PERC10 PO; +POTA-197 PO; +ROPI2TAB7 PO
--- NOTE | 2021-12-04 16:25 | NUR ---
BROUGHT IN BY [facility], PLACED IN BED #2 AND TRIAGED. REPORT GIVEN TO TAYE
--- NOTE | 2021-12-04 16:59 | NUR ---
86 YEARS OLD MALE BIBA FROM HOME WITH SOB TODAY PLACED ON TRANSCRIBER CONTINUOUS PULSE OX WILL CONTINUE TO MONITOR.
[2021-12-04 17:41] LABS: BASOPHILS % (AUTO) 0.5 % (0.0-2.0); EOSINOPHILS # (AUTO) 0.3 K/uL (0.0-0.4); EOSINOPHILS % (AUTO) 2.9 % (0.0-4.0); HEMOGLOBIN 10.9 g/dL (14.0-18.0); LYMPHOCYTES # (AUTO) 2.3 K/uL (1.0-5.5); LYMPHOCYTES % (AUTO) 24.5 % (20.5-51.5); MEAN CORPUSCULAR HEMOGLOBIN 27 pg (27-31); MEAN CORPUSCULAR HGB CONC 31 % (32-36); MEAN CORPUSCULAR VOLUME 86 fL (79.0-98.0); MONOCYTES # (AUTO) 0.9 K/uL (0.0-1.0); MONOCYTES % (AUTO) 9.1 % (1.7-9.3); PLATELET COUNT (AUTO) 294 K/uL (130-430); RED BLOOD CELL COUNT(AUTO) 4.07 MIL/uL (4.2-6.2); RED CELL DISTRIBUTION WIDTH 17.9 % (9.0-15.0); WHITE BLOOD COUNT (AUTO) 9.5 K/uL (4.8-10.8)
[2021-12-04 18:07] LABS: ANION GAP 7 (5-15); CALCIUM 9.7 mg/dL (8.4-11.0); CHLORIDE 97 mmol/L (98-107); CREATININE 1.04 mg/dL (0.55-1.30); GLUCOSE 150 mg/dL (70-99); POTASSIUM 4.2 mmol/L (3.5-5.1); SODIUM SERUM 139 mmol/L (136-145); UREA NITROGEN, BLOOD 13 mg/dL (8-21)
[2021-12-04] MEDS ORDERED: PIPERACILLIN/TAZO 3.375 GM in NS 50 ML IV ONE (18:15)
[2021-12-04] MEDS ORDERED: VANCOMYCIN HCL 1,000 MG in NS 250 ML IV ONE (18:15)
[2021-12-04 18:21] LABS: ALANINE AMINOTRANSFERASE 40 U/L (12-78); ALBUMIN 2.3 g/dL (3.4-4.8); ASPARTATE AMINOTRANSFERASE 32 U/L (10-37); TOTAL BILIRUBIN 0.3 mg/dL (0.0-1.0)
[2021-12-04] MEDS ORDERED: PIPERACILLIN/TAZOBACTAM 3.375 GM/VIAL (ZOSYN) IV ONE (18:55)
[2021-12-04] MEDS ORDERED: VANCOMYCIN HCL 1000 MG/VIAL IV ONE (19:04)
[2021-12-04] MEDS ORDERED: DEXAMETHASONE SOD PHOSPHATE 10 MG/ML VIAL IVP ONE (19:30)
[2021-12-04] MEDS ORDERED: OXYCODONE/ACETAMINOPHEN 5-325 TABLET PO ONE (19:45)
--- NOTE | 2021-12-04 19:49 | NUR ---
Received report from Caitie pt resting comfortably in bed AOX4 VSS NAD at this time Will continue to monitor
[2021-12-04] MEDS ORDERED: OXYCODONE/ACETAMINOPHEN 5-325 TABLET ONE (22:09)
[2021-12-04] MEDS ORDERED: DEXAMETHASONE SOD PHOSPHATE 10 MG/ML VIAL ONE (22:09)
--- NOTE | 2021-12-04 23:52 | NUR ---
Pt resting comfortably in bed AOX4 VSS NAD at this time
--- NOTE | 2021-12-05 01:30 | NUR ---
PT transferred to [facility] Room 2311 Gave report to Jessica Gonzalez
[2021-12-05 01:32] VITALS: BP_SYST 125
== END 2021-12-05 01:47 | disposition short-term general hospital (02) ==
LOC: SED 16:22
DX: R09.02 Hypoxemia (principal); J18.9 Pneumonia, unspecified organism; I10 Essential (primary) hypertension; K21.9 Gastro-esophageal reflux disease without esophagitis; J44.9 Chronic obstructive pulmonary disease, unspecified; E11.9 Type 2 diabetes mellitus without complications; Z88.2 Allergy status to sulfonamides; Z88.5 Allergy status to narcotic agent; Z88.8 Allergy status to other drugs, medicaments and biological substances; Z79.899 Other long term (current) drug therapy; Z79.82 Long term (current) use of aspirin; Z20.822 Contact with and (suspected) exposure to COVID-19
CPT/HCPCS: 36415; 36600; 71045; 80053; 82803; 83605; 83880; 84484; 85025; 87040; 87426; 93005; 96365; 96366; 96368; 96375; 99285; J1100; J2543; J3370